=== PATIENT | female | born 1980 | race Caucasian/White ===

== ENCOUNTER → 2019-01-25 16:44 | Outpatient (CLI) | payer OTHER, SELFPAY ==
--- NOTE | 2019-01-25 16:50 | CT_ITS ---
HISTORY: SINUSITIS. PRIOR BALLOON SINUPLASTY 1.5 YRS AGO TECHNIQUE: Noncontrast CT images of the paranasal sinuses. A radiation dose optimization technique was used for this scan. IV Contrast dosage and agent: None. COMPARISON: None FINDINGS: FRONTAL SINUSES AND RECESSES: Clear. ETHMOID AIR CELLS: Clear. MAXILLARY SINUSES: Mucous retention cyst versus polyp in the left maxillary sinus. Right maxillary sinus appears somewhat small in size with evidence of evidence of previous right maxillary antrostomy. OSTIOMEATAL COMPLEXES: Clear. SPHENOID SINUSES: Clear. SPHENOETHMOIDAL RECESSES: Clear. MASTOID AIR CELLS: Partial opacification on the right without destructive changes. Ancillary findings: NASAL TURBINATES: Unremarkable. NASAL SEPTUM: Midline. ORBITS: Unremarkable. VISUALIZED DENTITION: No acute findings. ANTERIOR CRANIAL FOSSA: Unremarkable. SOFT TISSUES: No acute findings. CT/Sinus/Facial Bone IMPRESSION: 1. No evidence of acute sinusitis. 2. Evidence of previous right maxillary antrostomy. 3. Right mastoid effusion. Individualized dose optimization techniques were used for this CT. at 0531 Reported and signed by: Ginny Joyner MD Electronically Signed: Ginny Joyner MD at 5:31 EST Tel , Service support ,
== END ==
PROVIDERS: Family Provider Family Medicine; PCP Family Medicine; Referring Provider Otolaryngology; Visit Provider Otolaryngology
DX: J32.9 Chronic sinusitis, unspecified (principal)
CPT/HCPCS: 70486

== ENCOUNTER → 2019-03-07 17:50 | Outpatient (CLI) | payer OTHER, SELFPAY ==
[2019-03-11 16:08] LABS: Age Gdln ACOG Testing 30-65 (.)
[2019-03-12 13:06] LABS: HPV APTIMA, High Risk Negative (Negative)
[2019-03-12 13:08] LABS: HPV Reflexed? YES, CHARGE PATIENT
== END ==
PROVIDERS: Family Provider Family Medicine; PCP Family Medicine; Referring Provider Obstetrics & Gynecology; Visit Provider Obstetrics & Gynecology
DX: Z12.4 Encounter for screening for malignant neoplasm of cervix (principal)
CPT/HCPCS: 87624; 88175; G0145

== ENCOUNTER 2019-12-14 10:38 | Emergency (ER) | payer OTHER, SELFPAY ==
[2019-12-14 10:40] VITALS: BP 148/99; PULSE 90; RESP 16; TEMP 36.4; O2SAT 100; BMI 37.8
--- NOTE | 2019-12-14 10:45 | NURSING ---
NO OLD EKGS
--- NOTE | 2019-12-14 10:56 | EKG12_ITS ---
Test Reason : CP Blood Pressure : / mmHG Vent. Rate : 077 BPM Atrial Rate : 077 BPM P-R Int : 144 ms QRS Dur : 070 ms QT Int : 376 ms P-R-T Axes : 069 041 041 degrees QTc Int : 425 ms Normal sinus rhythm with sinus arrhythmia Normal ECG Confirmed by SHANNA CUNNINGHAM, SABRINA ([id number]), design editor JONNY CORMIER ([id number]) on 12/15/2019 10:05:47 AM Referred By: MINDY Confirmed By:SABRINA OTERO MD
--- NOTE | 2019-12-14 10:57 | ED.VIS.GEN ---
History of Present Illness Chief Complaint: Chest Pain Detail of Chief Complaint: Shortness of breath and cramping chest pain Informant: Patient, Significant Other Onset: Hours - 1 hour prior to presentation Context: Sudden Onset Timing: Continuous Quality: Dyspnea, cramping heartburn worse supine. Location: The proximity of the xiphoid process Current Severity: Mild Maximum Severity: Moderate Worsened by: Change in position and increased shortness of breath with walking Relieved by: Nothing Associated Symptoms: No radiation, no GI symptoms, no diaphoresis Narrative: Patient is a 38-year-old woman with no sniffing past medical history who had a noninvasive study of her right lower extremity yesterday which revealed a superficial clot in the saphenous vein below the knee. She felt a lump last . The ultrasound was performed yesterday. She was told to elevate apply heat and take anti-inflammatory. She has no prior history of VTE. She has no risk factors. Last normal menstrual was 3 weeks ago. She discontinued control pills after it was determined she had a superficial clot. She does report swelling of the medial right calf. Prior similar symptoms: No Recent Illness/Hospitalization: Yes - Past Medical History (1) Superficial phlebitis of right leg Status: Acute (2) COVID-19 Status: Acute (3) GERD (gastroesophageal reflux disease) Status: Acute Past Medical History - Allergies and Home Meds Allergies/Adverse Reactions: Allergies ciprofloxacin [From Cipro] Allergy (Verified 12/14/19 10:40) Hives Penicillins [PCN] Allergy (Verified 12/14/19 10:40) Hives Sulfa (Sulfonamide Antibiotics) Allergy (Verified 12/14/19 10:40) Hives Primary Care Physician: Efrain Addison MD [Primary Care Provider] - Prior records reviewed: Yes Surgical History: noncontributory Lives: Spouse/ Significant Other, With Family Smoking Status: Never smoker Alcohol: Rare Drugs: None Review of Systems General: Denies: Chills, Fever, Sweats Eyes: Denies: Visual changes - bilaterally, Blurred Vision - bilaterally ENT: Denies: Rhinorrhea, Sore throat Cardiovascular: Reports: Chest pain Respiratory: Reports: Dyspnea, Dyspnea on exertion Gastrointestinal: Denies: Abdominal pain, Nausea, Vomiting, Diarrhea, Melena, Hematochezia Musculoskeletal: Reports: Swelling, Extremity Pain. Denies: Myalgias, Arthralgias, Neck pain, Back pain Skin: Reports: Rash, Wounds Neurological: Reports: Headache, Weakness Hematologic: Denies: Easy bruising, Easy bleeding Allergy: Denies: Uticaria, Swelling of the mouth Physical Exam Vital Signs/Narrative: Vital Signs Temp Pulse Resp BP Pulse Ox 12/14/19 10:40 97.6 F L 90 16 148/99 H 100 Inital Vital Signs reviewed: Yes General: Well nourished, Well developed, Obese Head: Normocephalic, Atraumatic Eyes: Perrl, EOMI. Negative for: Pale conjunctiva, Scleral icterus Neck: Supple, Nontender, No lymphadenopathy, No JVD Cardiovascular: Regular rate, Regular rhythm, No murmurs. Negative for: Normal S1, Normal S2 Respiratory: No distress, CTA bilaterally, Chest nontender Abdomen: Soft, Nontender, Nondistended, Normal bowel sounds Rectal: Deferred Back: Nontender, Normal Inspection Extremities: No edema, Tenderness - There is tenderness medial right calf. There is no tenderness along the distribution deep venous system. There is no discoloration of the leg. There is no leg vein distention.. Negative for: Nontender Skin: Normal color, No rash Neurological: Alert, Oriented x3, Cranial nerves II-XII grossly intact, Normal Strength, Normal Sensation Psychological: Normal affect, Normal Mood Diagnostic/Tx/Re-eval Laboratory Results 12/14/19 12/14/19 11:05 11:05 WBC 7.8 RBC 4.43 Hgb 12.4 Hct 39.8 MCV 89.8 MCH 28.0 MCHC 31.2 L RDW Std Deviation 44.5 H RDW Coeff of Placido 13.6 Plt Count 373 MPV 9.1 Immature Gran % (Auto) 0.300 Neut % (Auto) 58.0 Lymph % (Auto) 31.0 Woods % (Auto) 7.2 Eos % (Auto) 3.0 Baso % (Auto) 0.5 Absolute Neuts (auto) 4.5 Absolute Lymphs (auto) 2.41 Nucleated RBC % 0 Sodium 138 Potassium 3.8 Chloride 106 Carbon Dioxide 28.0 Anion Gap 4 L BUN 13 Creatinine 0.80 Estim Creat Clear Calc 80.72 Est GFR (MDRD) Af Amer 102 Est GFR (MDRD) Non-Af 84 BUN/Creatinine Ratio 16.2 Glucose 93 Calcium 8.8 Troponin I < 0.015 Heart score is 0. Renal function and electrolytes are normal. Troponin is normal. CBC and differential are normal. EKG was normal. - Rhythm Strip Rhythm Strip: Sinus Rhythm - EKG Initial EKG Interpretation: Sinus Rhythm - Sinus rhythm rate of 77. IN interval 144. QRS duration 70 ms. QT duration 376 ms. Urania is normal. EKG is unremarkable. - Medical Decision Making Patient presents with atypical chest pain. It is positional. She does have history of reflux. This may be the cause of her chest pain. EKG was obtained as well as blood work. Patient reported minimal improvement with GI cocktail. With a heart score 0- work-up plan is to discharge to home. ED Disposition - Plan for ED Patient: Disposition: Home or Assisted Living Diagnosis: Central chest pain Instructions: ED Chest Pain NonCardiac, ED Phlebitis Superficial Referrals: Efrain Addison MD [Primary Care Provider] - 3-5 Days if not improving
[2019-12-14] MEDS: Mag Hydrox/Al Hydrox/Simeth 30 ML UDC PO (11:15)
[2019-12-14 11:16] VITALS: BP 144/87; PULSE 80; RESP 18; O2SAT 100
[2019-12-14 11:18] LABS: Absolute Lymphocyte Count 2.41 X10^3/uL (0.83-4.51); Absolute Neutrophil Count 4.5 X10^3/uL (2.0-7.7); Basophil# 0.04 X10^3/uL; Basophil% 0.5 % (0-1); Eosinophil# 0.23 X10^3/uL; Hematocrit 39.8 % (37-47); Hemoglobin 12.4 g/dL (12.0-15.0); Lymphocyte # 2.41 X10^3/ul (4.0); Mean Corp Hgb Conc 31.2 g/dL (32-36); Mean Corpuscular Volume 89.8 fL (81-99); Mean Platelet Vol. 9.1 fl (6.2-12.0); Monocyte# 0.56 X10^3/uL; Monocyte% 7.2 % (0-10); NRBC Flagged by Analyzer 0 % (0-5); Neutrophil # 4.52 X10^3/uL (2.7-7.7); Platelet Count 373 K/mm3 (150-450); RBC Distribution Width CV 13.6 % (11.6-14.6); RBC Distribution Width SD 44.5 fl (35.1-43.9); Red Blood Count 4.43 M/mm3 (4.2-5.4); White Blood Count 7.8 K/mm3 (4.4-11.0)
[2019-12-14 11:34] LABS: Anion Gap 4 (5-15); BUN 13 mg/dL (7-18); BUN/Creat Ratio 16.2 RATIO (10-20); Calcium,Total 8.8 mg/dL (8.5-10.1); Chloride 106 mmol/L (98-107); EST Glomerular Filtration Rate 84 mL/min (>60); Est Glom Filt Rate - Afr Amer 102 mL/min (>60); Estimated Creatinine Clearance 80.72 ml/min; Glucose 93 mg/dL (74-106); Potassium 3.8 mmol/L (3.5-5.1); Sodium Level 138 mmol/L (136-145)
[2019-12-14 12:07] VITALS: BP 141/94; PULSE 80; RESP 18; O2SAT 95
== END 2019-12-14 12:07 | disposition home or self-care (01) ==
PROVIDERS: Emergency Provider Emergency Medicine; PCP Family Medicine
DX: R07.89 Other chest pain (principal); I80.01 Phlebitis and thrombophlebitis of superficial vessels of right lower extremity; E66.9 Obesity, unspecified; K21.9 Gastro-esophageal reflux disease without esophagitis; Z86.19 Personal history of other infectious and parasitic diseases
CPT/HCPCS: 80048; 84484; 85025; 93005; 99284; A4216

== ENCOUNTER → 2021-01-15 12:18 | Outpatient (CLI) | payer OTHER, SELFPAY | LOC: PSN 12:24 | PROVIDERS: PCP Family Medicine; Referring Provider Family Medicine; Visit Provider Family Medicine | DX: R07.9 Chest pain, unspecified (principal) | CPT/HCPCS: 93225; 93226 ==